=== PATIENT | male | born 1945 | race Caucasian/White ===

== ENCOUNTER 2019-06-17 12:52 | Outpatient (CLI) | payer MEDICARE | END 2019-06-17 23:59 | disposition home or self-care (01) | LOC: CFH 12:52 | PROVIDERS: ATTEND Internal Medicine | DX: J39.2 Other diseases of pharynx (principal); R09.81 Nasal congestion; R05 Cough | CPT/HCPCS: 70486 ==

== ENCOUNTER 2020-01-16 10:15 | Emergency (ER) | payer MEDICARE ==
[~2020-01-16] VITALS: Ht 182.9 cm; Wt 93.2 kg
--- NOTE | 2020-01-16 10:31 | NUR ---
SEVERED THUMB WRAPPED IN STERILE MOISTEND GAUZE, PLACED IN BIO HAZARD BAG AND THEN PLACED ON ICE BATH, BAG LABELED WITH PT STICKER
[2020-01-16] MEDS ORDERED: LIDOCAINE-MPF 1%, 5ML ONE (10:39)
[2020-01-16] MEDS ORDERED: BUPIVACAINE 0.25% ONE (10:41)
[2020-01-16] MEDS ORDERED: ASPI-496 PO (10:49)
[2020-01-16] MEDS ORDERED: AMLO-150 PO (10:49)
[2020-01-16] MEDS ORDERED: ASCO10004 PO (10:49)
[2020-01-16] MEDS ORDERED: UBID100C24 PO (10:49)
[2020-01-16] MEDS ORDERED: ATOR20TA PO (10:49)
[2020-01-16] MEDS ORDERED: TAMS-11 PO (10:49)
[2020-01-16] MEDS ORDERED: CHOL10003 PO (10:49)
[2020-01-16] MEDS ORDERED: LIDOCAINE 1%, 10ML INFIL ONE (11:00)
[2020-01-16] MEDS ORDERED: BUPIVACAINE 0.25% INFIL ONE (11:00)
--- NOTE | 2020-01-16 11:05 | NUR ---
PT C/O LEFT LATERAL ANKLE PAIN AFTER HE THINKS PASSING OUT. DR. TANG AWARE. PT PASSED OUT AFTER THUMB WAS CAUGHT IN LOG SPLITTER. PT DENIES HEAD OR NECK PAIN. SON AT BEDSIDE. PT'S THUMB HAS BEEN NUMBED. WAITING FOR RADIOLOGY RESULTS.
[2020-01-16] MEDS ORDERED: CEFAZOLIN PMX 1GM/50ML 50 ML ONE (13:07)
[2020-01-16] MEDS ORDERED: CEFAZOLIN PMX 1GM/50ML 50 ML IV ONE (13:30)
[2020-01-16 14:55] LABS: BASOPHILS % (AUTO) 0 % (0-1); EOSINOPHILS # (AUTO) 0.07 x10^3/uL (0-0.4); EOSINOPHILS % (AUTO) 1 % (1-7); LYMPHOCYTES # (AUTO) 1.09 x10^3/uL (1-3.4); LYMPHOCYTES % (AUTO) 15 % (22-44); MD NO; MEAN CORPUSCULAR HGB CONC 33.5 g/dL (33.2-36.2); MEAN CORPUSCULAR VOLUME 95.7 fL (81-97); MEAN PLATELET VOLUME 7.5 fL (7.4-10.4); MONOCYTES % (AUTO) 8 % (2-9); NEUTROPHILS # (AUTO) 5.66 x10^3/uL (1.8-6.8); NEUTROPHILS % (AUTO) 76 % (42-75); PLATELET COUNT 187 x10^3/uL (130-400); RED BLOOD COUNT 4.82 x10^6/uL (4.38-5.82); RED CELL DISTRIBUTION WIDTH 12.9 % (9.4-14.8)
[2020-01-16 15:07] LABS: ANION GAP 8 mmol/L (5-15); CALCIUM 9.6 mg/dL (8.5-10.1); CHLORIDE 112 mmol/L (98-107); CREATININE 1.06 mg/dL (0.7-1.3)
[2020-01-16] MEDS ORDERED: DIPH,PERTUSS(ACELL),TET VAC/PF 0.5 ML IM-VACC ONE ×2 (15:19→15:30)
[2020-01-16] MEDS ORDERED: NS + 20MEQ KCL 1,000 ML IV SCH (15:30)
[2020-01-16] MEDS ORDERED: ONDANSETRON 2MG/ML, 2ML ONE ×2 (15:59→17:41)
[2020-01-16] MEDS ORDERED: MORPHINE SULFATE 4 MG/ML, 1ML ONE (15:59)
[2020-01-16] MEDS ORDERED: MORPHINE SULFATE 4 MG/ML, 1ML IVPush PRN (16:00)
[2020-01-16] MEDS ORDERED: ONDANSETRON 2MG/ML, 2ML IVPush ONE (16:00)
[2020-01-16] MEDS ORDERED: HYDROmorphone 1 MG/ML, 1ML INJ IVPush PRN (16:30)
[2020-01-16] MEDS ORDERED: hydrALAzine 20 MG/ML, 1ML IV PRN (16:30)
[2020-01-16] MEDS ORDERED: LABETALOL 5MG/ML, 20ML IV PRN (16:30)
[2020-01-16] MEDS ORDERED: OXYcodone 5 MG/5 ML ORAL.SOL UDC PO PRN (16:30)
[2020-01-16] MEDS ORDERED: MEPERIDINE/PF 25MG/0.5ML IVPush PRN (16:30)
[2020-01-16] MEDS ORDERED: PROMETHAZINE 25 MG/ML, 1ML IVPush PRN (16:30)
[2020-01-16] MEDS ORDERED: ONDANSETRON 2MG/ML, 2ML IVPush PRN (16:30)
[2020-01-16] MEDS ORDERED: FENTANYL PF 100 MCG/2ML IV PRN (16:30)
[2020-01-16] MEDS ORDERED: FENTANYL PF 250 MCG/5ML ONE (16:57)
[2020-01-16] MEDS ORDERED: MIDAZOLAM 1 MG/ML, 2ML ONE (16:57)
[2020-01-16] MEDS ORDERED: CEFAZOLIN 1,000 MG ONE (17:39)
[2020-01-16] MEDS ORDERED: PROPOFOL 10 MG/ML, 20ML ONE (17:41)
[2020-01-16] MEDS ORDERED: DEXAMETHASONE 4 MG/ML, 1ML ONE (17:41)
[2020-01-16] MEDS ORDERED: EPHEDRINE 50 MG/ML, 1ML ONE (17:48)
[2020-01-16] MEDS ORDERED: BUPIVACAINE/PF 0.5% ONE (17:53)
[2020-01-16] MEDS ORDERED: NEOSPORIN OINT, 15GM ONE (18:16)
[2020-01-16] MEDS ORDERED: MEPERIDINE/PF 25MG/ML,1ML ONE (19:02)
[2020-01-16] MEDS ORDERED: HYDROcodone/APAP 5/325 TABLET PO PRN (20:00)
[2020-01-16] MEDS ORDERED: KETOROLAC 30 MG/1 ML IV SCH (20:00)
[2020-01-16] MEDS ORDERED: morphine SULFATE 10 MG/ML, 1ML IV PRN (20:00)
[2020-01-16] MEDS ORDERED: ONDANSETRON 2MG/ML, 2ML IV PRN (20:00)
[2020-01-16 20:05] VITALS: BP 132/73
[2020-01-16] MEDS ORDERED: HYDR-3240 PO (20:25)
[2020-01-16] MEDS ORDERED: CEPH-368 PO (20:26)
[2020-01-16 21:00] VITALS: BP 144/72
== END 2020-01-16 23:37 | disposition other institution (70) ==
LOC: OR 15:30 → 4NE 19:50 → OR 23:37
DX: S68.011A Complete traumatic metacarpophalangeal amputation of right thumb, initial encounter (principal); S67.01XA Crushing injury of right thumb, initial encounter; Z11.59 Encounter for screening for other viral diseases; R94.31 Abnormal electrocardiogram [ECG] [EKG]; W22.8XXA Striking against or struck by other objects, initial encounter; Y93.89 Activity, other specified; Y92.009 Unspecified place in unspecified non-institutional (private) residence as the place of occurrence of the external cause; Y99.8 Other external cause status
CPT/HCPCS: 26951; 36415; 71045; 73140; 73610; 80048; 85025; 87635; 90471; 90715; 93005; 96365; 96375; 99285; G0378; J0690; J1100; J2175; J2250; J2270; J2405; J2704; J3010; J3490; S0020; 64450; 99284

== ENCOUNTER → 2021-01-02 | Outpatient (CLI) | payer MEDICARE ==
[~2021-01-02] MED LIST: AMLO-150 PO; ASCO100018 PO; ASPI-496 PO; ATOR20TA PO; CEPH-368 PO; CHOL10003 PO; HYDR-2214 PO; TAMS-11 PO; UBID100C24 PO
== END | disposition home or self-care (01) ==
LOC: CFH 10:13
PROVIDERS: ATTEND Urology
DX: N20.0 Calculus of kidney (principal); N28.1 Cyst of kidney, acquired; K57.30 Diverticulosis of large intestine without perforation or abscess without bleeding; M43.8X4 Other specified deforming dorsopathies, thoracic region; M51.36 Other intervertebral disc degeneration, lumbar region
CPT/HCPCS: 74018; 74176